=== PATIENT | female | born 1930 | race Caucasian/White ===

== ENCOUNTER 2016-10-17 14:21 | Inpatient (IN) | payer BC, MEDICARE ==
[~2016-10-17] VITALS: Ht 162.6 cm; Wt 113.4 kg
[~2016-10-17 14:21] MED LIST: ALLO100T PO; AMLO10TA2 PO; ASPI-618 PO; CALC-764 PO; FOLI1TAB16 PO; GLIM1TAB3 PO; LEFL10TA16 PO; LEVO500T15 PO; LISI10TA5 PO; METF500T4 PO; MULT-70 PO; OMEG-15 PO; PANT40TA2 PO; QUET25TA PO
--- NOTE | 2016-10-17 14:30 | NUR ---
Dr Jaquez at the bedside for eval and exam.
[2016-10-17] MEDS ORDERED: ESCI20TA PO (14:48)
[2016-10-17] MEDS ORDERED: CYAN10009 PO (14:48)
[2016-10-17] MEDS ORDERED: LEVO100T10 PO (14:48)
[2016-10-17] MEDS ORDERED: SULF1TAB48 PO (14:48)
[2016-10-17 14:57] LABS: BASOPHILS % (AUTO) 0.7 % (0.0-2.0); EOSINOPHILS # (AUTO) 0.1 K/uL (0.0-0.7); EOSINOPHILS % (AUTO) 1.1 % (0.0-7.0); HEMATOCRIT 41.7 % (37-47); HEMOGLOBIN 13.5 G/DL (12.0-16.0); LYMPHOCYTES # (AUTO) 0.9 K/UL (0.8-4.8); MEAN CORPUSCULAR HEMOGLOBIN 31.4 UUG (27.0-31.0); MEAN CORPUSCULAR HGB CONC 32 g/dL (32.0-37.0); MEAN CORPUSCULAR VOLUME 96.8 FL (81.0-99.0); MONOCYTES # (AUTO) 0.3 K/UL (0.1-1.30); MONOCYTES % (AUTO) 4.5 % (0.0-11.0); NEUTROPHILS # (AUTO) 5.5 K/UL (1.8-8.9); NEUTROPHILS % (AUTO) 80.7 % (38.5-71.5); PLATELET COUNT (AUTO) 255 K/UL (150-450); RED BLOOD CELL COUNT(AUTO) 4.31 MIL/UL (4.2-5.4); WHITE BLOOD COUNT (AUTO) 6.8 K/UL (4.0-11.2)
[2016-10-17 15:20] LABS: ALANINE AMINOTRANSFERASE 15 U/L (14-59); ALKALINE PHOSPHATASE 58 U/L (50-136); ASPARTATE AMINOTRANSFERASE 25 U/L (15-37); BILIRUBIN,DIRECT 0.1 mg/dL (0.0-0.2); BILIRUBIN,TOTAL 0.2 mg/dL (0.2-1.0); CARBON DIOXIDE 31 mmol/L (21-32); CHLORIDE 103 mmol/L (98-107); CREATININE 1.4 mg/dL (0.6-1.3); POTASSIUM 4.5 mmol/L (3.5-5.1); TOTAL PROTEIN, SERUM 7.6 g/dL (6.4-8.2); UREA NITROGEN, BLOOD 17 mg/dL (7-18)
[2016-10-17 15:35] LABS: GLUCOSE 47 mg/dL (74-106)
[2016-10-17] MEDS ORDERED: DEXTROSE 50% 50 ML DISP.SYRIN IV ONE (15:45)
--- NOTE | 2016-10-17 15:45 | NUR ---
pt able to drink 4 oz of OJ and 2 oz of milk. md aware. s/s hypoglycemia noted.
--- NOTE | 2016-10-17 15:59 | NUR ---
PT CONSERVATOR BY NAME OF NORMA ARCHER CALLED AND LEFT PHONE # [phone].
[2016-10-17] MEDS ORDERED: PIPERACILLIN SODIUM/TAZOBACTAM 3.375 G in IV DEXTROSE 5% 50 ML IV ONE (16:00)
[2016-10-17] MEDS ORDERED: LEVOFLOXACIN 500 MG/D5W 100ML PIGGYBACK IV ONE (16:00)
[2016-10-17] MEDS ORDERED: DEXTROSE 50% 50 ML DISP.SYRIN ONE (16:03)
[2016-10-17] MEDS ORDERED: LEVOFLOXACIN 500 MG/D5W 100 ML ONE (16:13)
[2016-10-17] MEDS ORDERED: PIPERACILLIN/TAZOBACTAM/D5W 50 ML IV ONE (16:14)
--- NOTE | 2016-10-17 16:20 | NUR ---
JAVIER RODRIGEZ STARTED NEW IV LINE ON LT AC ANGIO 18.
[2016-10-17] MEDS ORDERED: LEVOFLOXACIN 250MG /D5W 250 MG in PREMIXED 1 EACH IV SCH (18:30)
[2016-10-17] MEDS ORDERED: ONDANSETRON 4 MG/2 ML VIAL IV PRN (18:30)
[2016-10-17] MEDS ORDERED: ALBUTEROL SULFATE 2.5 MG/3 ML NEBU NEB PRN (18:30)
[2016-10-17] MEDS ORDERED: DEXTROSE 50% 50 ML DISP.SYRIN IV PRN (18:30)
--- NOTE | 2016-10-17 19:48 | NUR ---
Pt. admitted to TELE, under care of Dr. Persaud. Belongs List completed
[2016-10-17 20:00] VITALS: BP 147/57
[2016-10-17] MEDS: BLOOD SUGAR DIAGNOSTIC 1 EACH STRIP VI SCH (21:00)
--- NOTE | 2016-10-17 21:00 | NUR ---
pt admitted from er. alert,oriented to her name only, pleasantly confused, forgetfull.denies any pain,no sob,skin intact,right arm infiltration and still swelling.incontinent and diaper. sinus on monitor with RBB. will continue to monitor
[2016-10-17] MEDS: DOCUSATE SODIUM 100 MG CAPSULE PO SCH (22:30)
[2016-10-17] MEDS ORDERED: DOCUSATE SODIUM 100 MG CAPSULE PO ONE ×2 (22:37→22:41)
[2016-10-18] VITALS: BP 154/56
[2016-10-18 04:00] VITALS: BP 133/54
--- NOTE | 2016-10-18 05:53 | NUR ---
pt didn't sleep overnight, watching tv,no changes, incontinent, no bm, no significant changes on monitor.
[2016-10-18 06:47] LABS: BASOPHILS # (AUTO) 0.1 K/uL (0.0-8.0); BASOPHILS % (AUTO) 0.9 % (0.0-2.0); EOSINOPHILS # (AUTO) 0.5 K/uL (0.0-0.7); EOSINOPHILS % (AUTO) 6.4 % (0.0-7.0); HEMOGLOBIN 12.5 G/DL (12.0-16.0); LYMPHOCYTES # (AUTO) 1.3 K/UL (0.8-4.8); LYMPHOCYTES % (AUTO) 18.5 % (20.5-51.5); MEAN CORPUSCULAR HEMOGLOBIN 36.6 UUG (27.0-31.0); MEAN CORPUSCULAR HGB CONC 36 g/dL (32.0-37.0); MEAN CORPUSCULAR VOLUME 102.7 FL (81.0-99.0); MONOCYTES # (AUTO) 0.7 K/UL (0.1-1.30); MONOCYTES % (AUTO) 9.6 % (0.0-11.0); NEUTROPHILS # (AUTO) 4.5 K/UL (1.8-8.9); NEUTROPHILS % (AUTO) 64.6 % (38.5-71.5); PLATELET COUNT (AUTO) 214 K/UL (150-450); RED BLOOD CELL COUNT(AUTO) 3.41 MIL/UL (4.2-5.4); WHITE BLOOD COUNT (AUTO) 7.1 K/UL (4.0-11.2)
[2016-10-18] MEDS: PANTOPRAZOLE SODIUM 40 MG TABLET.DR PO SCH (06:52)
[2016-10-18] MEDS: BLOOD SUGAR DIAGNOSTIC 1 EACH STRIP VI SCH ×4 (06:52→22:03)
[2016-10-18] MEDS: ACETAMINOPHEN 325 MG TABLET PO PRN (07:04)
[2016-10-18] MEDS: CYANOCOBALAMIN 1,000 MCG TABLET PO SCH (08:08)
[2016-10-18] MEDS: ASPIRIN EC 81 MG TABLET.DR PO SCH (08:08)
[2016-10-18] MEDS: ALLOPURINOL 100 MG TABLET PO SCH ×2 (08:08→16:06)
[2016-10-18] MEDS: CALCIUM CARB/VITAMIN D 500MG-200UNITS TABLET PO SCH (08:08)
[2016-10-18] MEDS: OMEGA-3 FATTY ACIDS/FISH OIL CAPSULE PO SCH (08:09)
[2016-10-18] MEDS: LEVOTHYROXINE SODIUM 100 MCG TABLET PO SCH (08:09)
[2016-10-18] MEDS: ESCITALOPRAM OXALATE 10 MG TABLET PO SCH (08:09)
[2016-10-18] MEDS: FOLIC ACID 1 MG TABLET PO SCH (08:09)
[2016-10-18 08:39] LABS: ALANINE AMINOTRANSFERASE 14 U/L (14-59); ALKALINE PHOSPHATASE 49 U/L (50-136); ASPARTATE AMINOTRANSFERASE 24 U/L (15-37); BILIRUBIN,TOTAL 0.4 mg/dL (0.2-1.0); CARBON DIOXIDE 30 mmol/L (21-32); CHLORIDE 106 mmol/L (98-107); CHOLESTEROL 185 mg/dL (<200); CREATININE 1.3 mg/dL (0.6-1.3); GLUCOSE 80 mg/dL (74-106); HDL CHOLESTEROL 63 mg/dL (40-60); MAGNESIUM 1.8 mg/dL (1.8-2.4); PHOSPHOROUS 2.9 mg/dL (2.5-4.9); POTASSIUM 4.6 mmol/L (3.5-5.1); TOTAL PROTEIN, SERUM 6.3 g/dL (6.4-8.2); TRIGLYCERIDES 42 MG/DL (30-150); UREA NITROGEN, BLOOD 16 mg/dL (7-18)
[2016-10-18] MEDS ORDERED: CALCIUM CARBONATE PO SCH (09:00)
[2016-10-18] MEDS ORDERED: Medication Not On Formulary EA (Escitalopram Oxalate (Lexapro) 20 MG) PO SCH (09:00)
[2016-10-18] MEDS ORDERED: VITAMIN D3 PO SCH (09:00)
[2016-10-18] MEDS ORDERED: [UNRECOGNIZED DRUG - OTHER] PO SCH (09:00)
[2016-10-18] MEDS ORDERED: Medication Not On Formulary EA (Omega-3/Dha/Epa/Fish Oil (Fish Oil 1,400 Mg Softgel) 1 E PO SCH (09:00)
--- NOTE | 2016-10-18 09:49 | NUR ---
Patient took her am meds today with no problem. patient is forgetful report given to Pricilla TORRES Addendum: 10/18/16 at 0949 by ONOFRE GABRIEL RN Amended: Links added.
[2016-10-18] MEDS: INSULIN REGULAR, HUMAN 300 UNIT/3 ML VIAL SQ PRN ×2 (11:35→16:09)
--- NOTE | 2016-10-18 12:30 | NUR ---
SPOKE WITH PATIENT BRIAN BOYLE'S CONSERVATOR NORMA CLEMONS SHE MAY BE REACHED AT ANY TIME AT [phone]
[2016-10-18 13:10] VITALS: BP 132/63
[2016-10-18] MEDS: LEVOFLOXACIN 250MG /D5W 250 MG in PREMIXED 1 EACH IV SCH (15:43)
[2016-10-18 16:30] VITALS: BP 114/50
--- NOTE | 2016-10-18 18:30 | NUR ---
At this time as hemodialysis charge nurse walking by noticed patient out of bed and sitting on the floor. Patient assisted back to bed vitals as follow 156/58, saturation of 97%. Back and lower back assessed and no bruises or injury noted, Dr. Mckeon notified by hemodialysis charge nurse. . No orders received. Patient left resting comfortably
[2016-10-18 20:00] VITALS: BP 157/54
--- NOTE | 2016-10-18 22:00 | NUR ---
Pt instructed in safety and encourage to stay in and to call for help. Fall precaution in progress. Noted - Pt right arm at elbow on inner side reddened/swollen - non -Pitting. Pt wearing diaper. Fruit juice offered/given/taken. Pt. encourage take oral fluids.
[2016-10-18] MEDS: ATORVASTATIN 10 MG TABLET PO SCH (22:03)
[2016-10-18] MEDS: DOCUSATE SODIUM 100 MG CAPSULE PO SCH (22:03)
[2016-10-18] MEDS: MORPHINE SULFATE 2 MG/1 ML DISP.SYRIN IV PRN (22:05)
--- NOTE | 2016-10-19 00:05 | NUR ---
Pt turned ad positioned every 2hours. Pt. endorsed to night nurse. Condition stable, IV Access in left AC/Vein - in placed/patent and flushed freely with 3ml N/Saline. Site clear with no swelling noted.
[2016-10-19] MEDS: ACETAMINOPHEN 325 MG TABLET PO PRN (00:27)
--- NOTE | 2016-10-19 00:30 | NUR ---
RECEIVED REPORT FROM KEMI/MEMBERSHIP ASSISTANT TO CONTINUE CARE.PT'S AWAKE,SITTING ON BED AND STATED THAT"I'M WET";ASSISTED FOR AM CARE AT THIS TIME,CHANGED GOWN AND ALL BED SHEETS.KEPT COMFORT TO PT;REORIENTATION TO PT FOR PLACE AND TIME DUE TO PT'S FORGETFUL AND ASKED "WHERE I'M."CLOSELY MONITORING TO PT.BED ALARM'S ON.
--- NOTE | 2016-10-19 04:30 | NUR ---
PT GOT OUT OF BED AND STATED THAT "I CAN'T SLEEP";ASSISTED TO SIT @ [facility] FOR 15 MINS DUE TO COLLECT URINE ORDER;PT STATED THAT" I DON'T HAVE IT AT THIS TIME".ASSISTED BACK TO BED,BED ALARM'S ON.KEPT CALL-LIGHT WITHIN REACH.
[2016-10-19 04:51] VITALS: BP 128/53
[2016-10-19] MEDS: BLOOD SUGAR DIAGNOSTIC 1 EACH STRIP VI SCH ×4 (06:39→20:48)
[2016-10-19] MEDS: PANTOPRAZOLE SODIUM 40 MG TABLET.DR PO SCH (06:39)
[2016-10-19] MEDS: LEVOTHYROXINE SODIUM 100 MCG TABLET PO SCH (06:39)
--- NOTE | 2016-10-19 06:45 | NUR ---
PT TRIED TO GOB MANY TIMES AND STATED THAT"I WANT TO SIT @ CHAIR;AIDE/CLINICAL MASSAGE THERAPIST ASSISTED PT TO SIT AT THIS TIME,ALL NEEDS WERE PROVIDED;PT'S HAPPY AND STATED THAT'I FEEL HAPPY",CLOSELY MONITORING TO PT.KEPT CALL-LIGHT WITHIN REACH.
[2016-10-19 07:12] LABS: ALANINE AMINOTRANSFERASE 17 U/L (14-59); ALKALINE PHOSPHATASE 52 U/L (50-136); ASPARTATE AMINOTRANSFERASE 28 U/L (15-37); BILIRUBIN,TOTAL 0.4 mg/dL (0.2-1.0); CARBON DIOXIDE 31 mmol/L (21-32); CHLORIDE 105 mmol/L (98-107); CREATININE 1.5 mg/dL (0.6-1.3); GLUCOSE 107 mg/dL (74-106); MAGNESIUM 1.8 mg/dL (1.8-2.4); POTASSIUM 4.3 mmol/L (3.5-5.1); TOTAL PROTEIN, SERUM 6.6 g/dL (6.4-8.2); UREA NITROGEN, BLOOD 18 mg/dL (7-18)
[2016-10-19 07:46] LABS: HEMOGLOBIN 13.5 G/DL (12.0-16.0); WHITE BLOOD COUNT (AUTO) 7.4 K/UL (4.0-11.2)
[2016-10-19 07:47] LABS: BASOPHILS # (AUTO) 0.1 K/uL (0.0-8.0); BASOPHILS % (AUTO) 0.8 % (0.0-2.0); EOSINOPHILS # (AUTO) 0.6 K/uL (0.0-0.7); EOSINOPHILS % (AUTO) 7.9 % (0.0-7.0); LYMPHOCYTES # (AUTO) 1.9 K/UL (0.8-4.8); LYMPHOCYTES % (AUTO) 25.2 % (20.5-51.5); MEAN CORPUSCULAR HEMOGLOBIN 35.3 UUG (27.0-31.0); MEAN CORPUSCULAR HGB CONC 34 g/dL (32.0-37.0); MEAN CORPUSCULAR VOLUME 103.2 FL (81.0-99.0); MONOCYTES # (AUTO) 0.6 K/UL (0.1-1.30); MONOCYTES % (AUTO) 8.7 % (0.0-11.0); NEUTROPHILS # (AUTO) 4.2 K/UL (1.8-8.9); NEUTROPHILS % (AUTO) 57.4 % (38.5-71.5); PLATELET COUNT (AUTO) 217 K/UL (150-450)
[2016-10-19 07:58] LABS: HEMATOCRIT 39.5 % (37-47); RED BLOOD CELL COUNT(AUTO) 3.83 MIL/UL (4.2-5.4)
[2016-10-19] MEDS: CALCIUM CARB/VITAMIN D 500MG-200UNITS TABLET PO SCH (08:50)
[2016-10-19] MEDS: CYANOCOBALAMIN 1,000 MCG TABLET PO SCH (08:51)
[2016-10-19] MEDS: OMEGA-3 FATTY ACIDS/FISH OIL CAPSULE PO SCH (08:51)
[2016-10-19] MEDS: FOLIC ACID 1 MG TABLET PO SCH (08:51)
[2016-10-19] MEDS: ALLOPURINOL 100 MG TABLET PO SCH ×2 (08:51→17:00)
[2016-10-19] MEDS: ESCITALOPRAM OXALATE 10 MG TABLET PO SCH (08:51)
[2016-10-19] MEDS: ASPIRIN EC 81 MG TABLET.DR PO SCH (08:51)
--- NOTE | 2016-10-19 10:31 | NUR ---
PT IS A 85 YEAR OLD FEMALE WHO IS ADMITTED W/ TYPE 11 DM AND HTN, PT IS BLIND AND OBESE. PHYSICAL ASSESSMENT SUGGESTED MILD TO MODERATE MALNUTRITION R/T OBESITY MPH:dementia with psychosis, GERD, chronic constipation, legal blindness, vitamin B12 deficiency, abnormal EKG with right bundle branch block and left axis deviation, hypothyroidism, hypertension, type II diabetes mellitus and gout. PO INTAKE VARIES- BOOST SUPPLEMENT ADDED WHEN PO LESS THAN 50% PT DID NOT HAVE ANY BM SINCE ADMISSION ON 10/18-HYPOACTIVE BOWEL SOUNDS, ON A CARDIAC DIET W/ NORMAL SERVINGS OF SOLUBLE AND INSOLUBLE FIBER- REC TO ADD NUTRISOURCE FIBER AND YOGURT TO MEALS MEDS: AMLODIPINE, LIPITOR, B12, FOLIC ACID, FISH OIL, PROTONIX, SYNTHROID, COLACE SSL- DNI- CONTINUE TO ADMINISTER PROTONIX AND SYNTHROID 1 HR BEFORE OR AFTER FOOD, CONTINUE A Na RESTRICTED DIET W/ AMLODIPINE LABS: 10/19: Cr-1.5 (H), BG-107 (H), ALB-2.9 (L), A1C NORMAL NO SKIN BREAKDOWN ESTIMATED NEEDS: KCAL-25-30/KG IBW OF 55KGS PROTEIN-1-1.2 GM/KG IBW FLUID-25-30 CCS/KG IBW DX- ALTERED LABS R/T ACUTE CLINICAL CONDITION EVIDENCED BY LABS INTERVENTION: NONE INDICATED AT THIS TIME GOALS: MAINTAIN PO, EAT ATLEAST 75% OF THE FOOD PROVIDED DAILY NO N/V/D/C NO SKIN BREAKDOWN NO SGNF. WT CHANGES DURING STAY Addendum: 10/20/16 at [address] Amended: Links added.
[2016-10-19 11:43] VITALS: BP 123/54
[2016-10-19] MEDS: INSULIN REGULAR, HUMAN 300 UNIT/3 ML VIAL SQ PRN ×2 (12:05→22:00)
[2016-10-19] MEDS ORDERED: QUETIAPINE FUMARATE 25 MG TABLET PO ONE (12:30)
[2016-10-19] MEDS ORDERED: HALOPERIDOL LACTATE 5 MG/1 ML VIAL IM ONE (12:30)
[2016-10-19 16:18] VITALS: BP 166/75
[2016-10-19] MEDS: LEVOFLOXACIN 250MG /D5W 250 MG in PREMIXED 1 EACH IV SCH (16:56)
[2016-10-19] MEDS: AMLODIPINE 5 MG TABLET PO SCH (16:57)
[2016-10-19] MEDS: MORPHINE SULFATE 2 MG/1 ML DISP.SYRIN IV PRN (18:05)
--- NOTE | 2016-10-19 18:11 | NUR ---
PATIENT BACAME VERY ANXIOUS AND AGRESSIVE DURING THE AFTERNOON. SHE WANTED TO WALK AROUND THE UNIT AND STAY IN THE NURSING OFFICE, BUT DUE TO HER UNSTEADY GAIT AND FALL PRECAUTIONS SHE WAS NOT ABLE. SHE REFUSED TO GO TO THE HER ROOM, BECOMING MORE ANXIOUS. SPECIAL SKILLS OFFICER EMELY ORDERED HALDOL IM TO CALM HER DOWN. MEDICATION WAS EFFECTIVE, PATIENT BECAME CALM AND COOPERATIVE. SITTER WAS CALLED FOR SAFETY. NOW PATIENT IS IN ROOM RESTING, SHE IS CALM BUT CONFUSED STATING THAT HER IS NEXT TO HER. WILL CONTINUE MONITORING
[2016-10-19 20:00] VITALS: BP 118/64
[2016-10-19] MEDS: ATORVASTATIN 10 MG TABLET PO SCH (20:45)
[2016-10-19] MEDS: DOCUSATE SODIUM 100 MG CAPSULE PO SCH (20:45)
--- NOTE | 2016-10-20 03:18 | NUR ---
Patient resting comfortably, straight cath done w/o difficulty. Urine specimen sent to the lab.
[2016-10-20 04:31] LABS: *BILIRUBIN,URIN NEGATIVE (NEGATIVE); *BLOOD, URINE NEGATIVE (NEGATIVE); *CLARITY,URINE SLIGHTLY CLOUDY (CLEAR); *COLOR,URINE YELLOW (YELLOW); *KETONES,URINE NEGATIVE (NEGATIVE); *PROTEIN,URINE NEGATIVE (NEGATIVE); *UROBILINOGEN,URINE 0.2 E.U./dl (NORMAL); LEUKOCYTE ESTERASE ,URINE NEGATIVE (NEGATIVE); NITRITE, URINE NEGATIVE (NEGATIVE); PH,URINE 5.5 (5.0-8.0); UGLUCOSE NEGATIVE (NEGATIVE)
[2016-10-20 04:35] LABS: BACTERIA,URINE MODERATE /HPF (NONE SEEN); RBC,URINE 0-3 /HPF (0-3); SQUAMOUS EPITHELIAL CELL,UR FEW /HPF (NONE SEEN); WBC,URINE 0-3 /HPF (0-3)
[2016-10-20 05:11] VITALS: BP 110/63
[2016-10-20] MEDS: LEVOTHYROXINE SODIUM 100 MCG TABLET PO SCH (06:19)
[2016-10-20] MEDS: PANTOPRAZOLE SODIUM 40 MG TABLET.DR PO SCH (06:19)
[2016-10-20] MEDS: BLOOD SUGAR DIAGNOSTIC 1 EACH STRIP VI SCH ×4 (06:20→20:44)
[2016-10-20 07:03] LABS: BASOPHILS % (AUTO) 0.5 % (0.0-2.0); EOSINOPHILS # (AUTO) 0.2 K/uL (0.0-0.7); EOSINOPHILS % (AUTO) 2.1 % (0.0-7.0); HEMOGLOBIN 13.2 G/DL (12.0-16.0); LYMPHOCYTES # (AUTO) 1.1 K/UL (0.8-4.8); LYMPHOCYTES % (AUTO) 12.8 % (20.5-51.5); MEAN CORPUSCULAR HEMOGLOBIN 32.9 UUG (27.0-31.0); MEAN CORPUSCULAR HGB CONC 33 g/dL (32.0-37.0); MEAN CORPUSCULAR VOLUME 99.9 FL (81.0-99.0); MONOCYTES # (AUTO) 0.6 K/UL (0.1-1.30); MONOCYTES % (AUTO) 7.4 % (0.0-11.0); NEUTROPHILS # (AUTO) 6.6 K/UL (1.8-8.9); NEUTROPHILS % (AUTO) 77.2 % (38.5-71.5); PLATELET COUNT (AUTO) 212 K/UL (150-450); WHITE BLOOD COUNT (AUTO) 8.5 K/UL (4.0-11.2)
[2016-10-20 07:34] LABS: CARBON DIOXIDE 31 mmol/L (21-32); CHLORIDE 104 mmol/L (98-107); CREATININE 1.9 mg/dL (0.6-1.3); GLUCOSE 120 mg/dL (74-106); MAGNESIUM 2.2 mg/dL (1.8-2.4); PHOSPHOROUS 6.5 mg/dL (2.5-4.9); POTASSIUM 5.3 mmol/L (3.5-5.1); UREA NITROGEN, BLOOD 26 mg/dL (7-18)
--- NOTE | 2016-10-20 07:57 | NUR ---
PT I SLEEPING IN BED COMFORTABLY. NO S/S OF RESPIRATORY DISTRESS NOTED. NO PAIN REPORTED. IV INTACT/PATENT. ALL SAFETY NEEDS NEEDS ARE MET. WILL CONTINUE TO MONITOR. 1:1 SITTER FOR SAFETY. PT IS CALM, COOPERATIVE.
[2016-10-20] MEDS: ASPIRIN EC 81 MG TABLET.DR PO SCH (08:12)
[2016-10-20] MEDS: ESCITALOPRAM OXALATE 10 MG TABLET PO SCH (08:12)
[2016-10-20] MEDS: CYANOCOBALAMIN 1,000 MCG TABLET PO SCH (08:12)
[2016-10-20] MEDS: OMEGA-3 FATTY ACIDS/FISH OIL CAPSULE PO SCH (08:12)
[2016-10-20] MEDS: ALLOPURINOL 100 MG TABLET PO SCH ×2 (08:12→16:54)
[2016-10-20] MEDS: FOLIC ACID 1 MG TABLET PO SCH (08:12)
[2016-10-20] MEDS: CALCIUM CARB/VITAMIN D 500MG-200UNITS TABLET PO SCH (08:12)
[2016-10-20] MEDS: AMLODIPINE 5 MG TABLET PO SCH (08:12)
[2016-10-20] MEDS: INSULIN REGULAR, HUMAN 300 UNIT/3 ML VIAL SQ PRN ×2 (08:14→11:26)
[2016-10-20] MEDS ORDERED: FUROSEMIDE 20 MG/2 ML VIAL IV ONE (11:15)
[2016-10-20 12:00] VITALS: BP 135/58
[2016-10-20 16:00] VITALS: BP 148/60
[2016-10-20] MEDS ORDERED: LEVOFLOXACIN 250 MG TABLET PO SCH (16:30)
--- NOTE | 2016-10-20 19:10 | NUR ---
PATIENT AWAKE VERBALLY RESPONSIVE, NO SOB NO CHEST PAIN, CONT ON 1;1 SITTER FOR SAFETY, KEPT CLEAN AND DRY.
--- NOTE | 2016-10-20 19:34 | NUR ---
NO CHANGES NOTED. ALL SAFETY NEEDS ARE MET. 1:1 SITTER FOR SAFETY NEEDS.
[2016-10-20 20:03] VITALS: BP 129/52
--- NOTE | 2016-10-20 20:30 | NUR ---
PATIENT HAS FRIEND VISITING HER, NO COMPLAIN OF PAIN NOR DISCOMFORT, CONT 1;1 SITTER FOR SAFETY, CONT TO MONITOR.
[2016-10-20] MEDS: ATORVASTATIN 10 MG TABLET PO SCH (20:45)
[2016-10-20] MEDS: DOCUSATE SODIUM 100 MG CAPSULE PO SCH (20:45)
[2016-10-21] MEDS: LEVOTHYROXINE SODIUM 100 MCG TABLET PO SCH (06:00)
[2016-10-21] MEDS: PANTOPRAZOLE SODIUM 40 MG TABLET.DR PO SCH (06:00)
[2016-10-21 06:03] VITALS: BP 130/60
[2016-10-21] MEDS: BLOOD SUGAR DIAGNOSTIC 1 EACH STRIP VI SCH ×2 (06:27→11:43)
--- NOTE | 2016-10-21 06:39 | NUR ---
PATIENT SLEPT MOST OF THE NIGHT, NO SOB NO CHEST PAIN NOTED, CONT ON OXYGEN 2 LITER, NC, OXYGEN SAT 98%, NO S/S OF DISTRESS.
[2016-10-21 06:50] LABS: BASOPHILS # (AUTO) 0.1 K/uL (0.0-8.0); BASOPHILS % (AUTO) 0.7 % (0.0-2.0); EOSINOPHILS # (AUTO) 0.4 K/uL (0.0-0.7); EOSINOPHILS % (AUTO) 4.9 % (0.0-7.0); HEMATOCRIT 37.9 % (37-47); HEMOGLOBIN 12.8 G/DL (12.0-16.0); LYMPHOCYTES # (AUTO) 1.3 K/UL (0.8-4.8); LYMPHOCYTES % (AUTO) 14.9 % (20.5-51.5); MEAN CORPUSCULAR HEMOGLOBIN 33.3 UUG (27.0-31.0); MEAN CORPUSCULAR HGB CONC 34 g/dL (32.0-37.0); MEAN CORPUSCULAR VOLUME 98.7 FL (81.0-99.0); MONOCYTES # (AUTO) 0.4 K/UL (0.1-1.30); MONOCYTES % (AUTO) 4.8 % (0.0-11.0); NEUTROPHILS # (AUTO) 6.4 K/UL (1.8-8.9); NEUTROPHILS % (AUTO) 74.7 % (38.5-71.5); PLATELET COUNT (AUTO) 216 K/UL (150-450); RED BLOOD CELL COUNT(AUTO) 3.84 MIL/UL (4.2-5.4); WHITE BLOOD COUNT (AUTO) 8.6 K/UL (4.0-11.2)
[2016-10-21 07:05] LABS: CARBON DIOXIDE 32 mmol/L (21-32); CHLORIDE 103 mmol/L (98-107); CREATININE 1.3 mg/dL (0.6-1.3); GLUCOSE 101 mg/dL (74-106); PHOSPHOROUS 3.6 mg/dL (2.5-4.9); POTASSIUM 4.4 mmol/L (3.5-5.1); UREA NITROGEN, BLOOD 22 mg/dL (7-18)
[2016-10-21 07:30] VITALS: BP 132/57
[2016-10-21] MEDS: OMEGA-3 FATTY ACIDS/FISH OIL CAPSULE PO SCH (09:08)
[2016-10-21] MEDS: ALLOPURINOL 100 MG TABLET PO SCH (09:08)
[2016-10-21] MEDS: ASPIRIN EC 81 MG TABLET.DR PO SCH (09:09)
[2016-10-21] MEDS: FOLIC ACID 1 MG TABLET PO SCH (09:09)
[2016-10-21] MEDS: ESCITALOPRAM OXALATE 10 MG TABLET PO SCH (09:09)
[2016-10-21 09:10] VITALS: BP 109/44
[2016-10-21] MEDS: AMLODIPINE 5 MG TABLET PO SCH (09:10)
[2016-10-21] MEDS: CALCIUM CARB/VITAMIN D 500MG-200UNITS TABLET PO SCH (09:10)
[2016-10-21] MEDS: CYANOCOBALAMIN 1,000 MCG TABLET PO SCH (09:10)
[2016-10-21] MEDS ORDERED: AMLO5TAB2 PO (11:28)
[2016-10-21] MEDS ORDERED: LEVO250T2 PO (11:28)
[2016-10-21] MEDS ORDERED: ATOR10TA PO (11:28)
[2016-10-21] MEDS: INSULIN REGULAR, HUMAN 300 UNIT/3 ML VIAL SQ PRN (11:46)
--- NOTE | 2016-10-21 14:29 | NUR ---
The patient will be discharged today back to [facility] [ ; ; [facility] known as [facility]; [address] [place] [address]] via [facility]. Spoke to her conservator, Marilyn [ ], who was in agreement with her discharge plan. Also spoke to Linda from [facility] and she confirmed that they will re-admit their patient today. She informed this sap bw bi developer that the patient will be followed-up by [facility] [ ; ] for PT. Her RN, Kathya, is aware of her discharge plan.
[2016-10-21] MEDS: MORPHINE SULFATE 2 MG/1 ML DISP.SYRIN IV PRN (14:34)
--- NOTE | 2016-10-21 15:21 | NUR ---
PATIENT BEEN DISCHARGE HOME IN STABLE CONDITION. DURING THE MORNING PATIENT WAS COOPERATIVE, FOLLOWING INSTRUCTIONS. IN THE AFTERNOON SHE BECAME UNCOOPERATIVE, AGGRESSIVE AND COMBATIVE REFUSING TO REMOVED IV AND DC PICTURES TAKEN. DISCHARGE INSTRUCTIONS WERE SIGNED BY SHEMAR CHARGE NURSE, AND MYSELF. BELONGINGS WERE TAKEN, WELL DISCHARGE INSTRUCTIONS AND PRESCRIPTIONS. BRIAN CLEMENT REMOVED IV AND ID BAND. SAFETY AND COMFORT PROVIDED DURING THE DAY. PARAMEDICS PICKING UP PATIENT TO TAKE HER TO [facility].
--- NOTE | 2016-10-21 15:45 | NUR ---
PATIENT WAS TAKEN BY THE PARAMEDICS IN STABLE CONDITION. ALL BELONGINGS AND PRESCRIPTIONS WERE GIVEN TO PARAMEDICS.
== END 2016-10-21 15:40 | DRG 637 ==
LOC: ER 14:24 → TELE 19:50 → MED 10-18 12:35
PROVIDERS: ADMIT Internal Medicine; ATTEND Internal Medicine
DX: E11.649 Type 2 diabetes mellitus with hypoglycemia without coma (principal); I50.33 Acute on chronic diastolic (congestive) heart failure; G93.41 Metabolic encephalopathy; D68.59 Other primary thrombophilia; N39.0 Urinary tract infection, site not specified; I13.0 Hypertensive heart and chronic kidney disease with heart failure and stage 1 through stage 4 chronic kidney disease, or unspecified chronic kidney disease; N17.0 Acute kidney failure with tubular necrosis; I63.9 Cerebral infarction, unspecified; H54.8 Legal blindness, as defined in USA; K21.9 Gastro-esophageal reflux disease without esophagitis; E03.9 Hypothyroidism, unspecified; K59.00 Constipation, unspecified; E53.8 Deficiency of other specified B group vitamins; I45.10 Unspecified right bundle-branch block; M10.9 Gout, unspecified; R29.6 Repeated falls; F01.50 Vascular dementia, unspecified severity, without behavioral disturbance, psychotic disturbance, mood disturbance, and anxiety; Z79.84 Long term (current) use of oral hypoglycemic drugs; Z79.82 Long term (current) use of aspirin; Z79.899 Other long term (current) drug therapy; Z86.73 Personal history of transient ischemic attack (TIA), and cerebral infarction without residual deficits; M25.78 Osteophyte, vertebrae; I25.10 Atherosclerotic heart disease of native coronary artery without angina pectoris; N18.9 Chronic kidney disease, unspecified; Z74.09 Other reduced mobility; D75.89 Other specified diseases of blood and blood-forming organs; E05.90 Thyrotoxicosis, unspecified without thyrotoxic crisis or storm; E11.22 Type 2 diabetes mellitus with diabetic chronic kidney disease; F29 Unspecified psychosis not due to a substance or known physiological condition; I35.0 Nonrheumatic aortic (valve) stenosis; I25.2 Old myocardial infarction; M48.02 Spinal stenosis, cervical region; E66.9 Obesity, unspecified
CPT/HCPCS: 36415; 70030-TC; 70450; 71010; 72125; 83605; 83735; 84100; 84443; 85025; 85730; 87040; 87086; 93005; 93307; 97110; 97116; 97161; 97530; A4663; J1630; J1815; J1940; J1956; J2270; J2543; J3490